=== PATIENT | female | born 1960 | race Asian ===

== ENCOUNTER 2016-06-30 12:05 | Day surgery (SDC) | payer OTHER ==
[~2016-06-30] VITALS: Ht 160 cm; Wt 64.0 kg
[2016-06-30 13:34] VITALS: Ht 160 cm; Wt 64.0 kg
[2016-06-30] MEDS ORDERED: PRIMROSE (13:40)
[2016-06-30] MEDS ORDERED: ATORVASTATIN (13:40)
[2016-06-30 15:06] VITALS: BP 125/77; PULSE 72; RESP 18
[2016-06-30] MEDS ORDERED: PROPOFOL 20 ML ONE (15:17)
[2016-06-30 16:40] VITALS: BP 145/86; PULSE 74; RESP 15
--- NOTE | 2016-06-30 18:18 | GILP ---
DATE OF PROCEDURE: 06/30/2016 PROCEDURE PERFORMED: Colonoscopy with biopsies and localization tattoo. PREMEDICATION: Monitored anesthesia care by anesthesiologist. SURGEON: Sharon Lopez MD. INSTRUMENT USED: Olympus colonoscope. PREPARATION: Was adequate. TECHNIQUE: After informed consent, with the patient/relatives understanding the procedure, its indic ations potential risks and complications, including but not limited to: allergic reaction, bleeding, perforation, infection, missed lesions and after all pertinent questions were answered to the patie nt's satisfaction, the patient/relatives signed the witnessed informed consent. Following this, premedication was administered slowly IV push by under careful cardiovascular and re spiratory monitoring with pulse oximetry, automatic blood pressure and requisition approver. Once the sedativ e effect was achieved, the patient was placed in the left lateral decubitus position, digital rectal examination was performed. The colonoscope was then introduced and advanced under visual control th roughout all segments of the colon including: the rectum, sigmoid, descending colon, splenic flexure , transverse colon, hepatic flexure, ascending colon and finally reaching the cecum which was clearl y identified by transillumination, finger indentation and the ileocecal valve. Careful examination o f the mucosa of the lower gastrointestinal tract both on insertion as well as withdrawal of the inst rument disclosed the following findings: Rectal Examination: No evidence of perirectal disease, no masses. Colonic Mucosa: There is a large, more than 5 cm broad-based polypoid mass which is multilobulated at approximately 30 cm in the distal sigmoid colon. The area was bypassed. The remainder of the co lonic mucosa unremarkable. The ileocecal valve was clearly identified and appears unremarkable. Th e instrument was withdrawn. On withdrawal of the instrument, no additional abnormalities are noted. The mass was biopsied extensively and it is soft to the touch. The area was tattooed for localiza tion. Moderate sized internal hemorrhoids are present. The instrument was then withdrawn, the patient tolerated the procedure well and was transferred out of the Endoscopy Suite awake and in good condition to continue recovery under observation. IMPRESSION: 1. Large, more than 5 cm broad-based polypoid mass in the distal sigmoid colon at about 30 cm from the anal verge biopsy tattoo. 2. Moderate sized internal hemorrhoids. PLAN: Pathology will be reviewed as soon as available. CT of the abdomen and pelvis should be obta ined. The lesion will require surgical resection. The patient has been informed of the findings and the need for surgery, as well as further imaging, i.e. CT. Dictated By: SHARON SANDOVAL Conf#: [id number] DID#: [id number]
== END 2016-06-30 16:36 | disposition home or self-care (01) ==
LOC: GIL 12:05
PROVIDERS: ATTEND Internal Medicine Gastroenterology
DX: Z12.11 Encounter for screening for malignant neoplasm of colon (principal); D12.5 Benign neoplasm of sigmoid colon; K64.8 Other hemorrhoids; E78.5 Hyperlipidemia, unspecified
CPT/HCPCS: 84703; 88305

== ENCOUNTER 2016-12-06 10:04 | Inpatient (IN) | payer OTHER ==
[~2016-12-06] VITALS: Ht 160 cm; Wt 60.6 kg
[2016-12-06] VITALS (19 sets, daily range): BP systolic 114–144; BP diastolic 67–89; PULSE 60–83; RESP 10–20; Ht 160 cm; Wt 60.6 kg
[~2016-12-06 10:04] MED LIST: ATORVASTATIN; PRIMROSE; metroNIDAZOLE 500 MG/100 ML NS IVPB ONE
[2016-12-06] MEDS ORDERED: ATOR10TA65 PO (10:34)
[2016-12-06] MEDS ORDERED: ROCURONIUM 50 MG INJ ONE (11:27)
[2016-12-06] MEDS ORDERED: PROPOFOL 20 ML ONE (11:27)
[2016-12-06] MEDS ORDERED: GLYCOPYRROLATE 0.4 MG INJ ONE (11:27)
[2016-12-06] MEDS ORDERED: MIDAZOLAM 1 MG/ML 2 ML INJ ONE (11:28)
[2016-12-06] MEDS ORDERED: ONDANSETRON 4 MG INJ ONE (11:28)
[2016-12-06] MEDS ORDERED: DEXAMETHASONE 4 MG/ML 1 ML INJ ONE (11:28)
[2016-12-06] MEDS ORDERED: FENTAnyl 50 MCG/ML VIAL ONE (11:28)
[2016-12-06] MEDS ORDERED: CEFAZOLIN 1 GM INJ ONE (11:28)
[2016-12-06] MEDS ORDERED: NEOSTIGMINE 3 MG/3 ML SYRINGE ONE (11:28)
[2016-12-06] MEDS ORDERED: LACTATED RINGER'S 1,000 ML IV* SCH (11:30)
[2016-12-06] MEDS ORDERED: CEFAZOLIN 2 GM/50 ML (PMX) 50 ML IVPB SCH (11:30)
--- NOTE | 2016-12-06 12:25 | HPN ---
Date/Time of Note Date/Time of Note DATE: 12/06/16 TIME: 12:24 Interval H&P Admission Note Pt. seen H&P reviewed: No system changes CARLOS PRABHAKAR MD Dec 06, 2016 12:25
[2016-12-06] MEDS ORDERED: [UNRECOGNIZED DRUG - OTHER] ONE (12:54)
[2016-12-06] MEDS ORDERED: ROPIVACAINE ONE (12:54)
[2016-12-06] MEDS ORDERED: OXYCODONE/ACETAMINOPHEN (5/325) TAB PO PRN ×2 (13:30)
[2016-12-06] MEDS ORDERED: FENTAnyl 50 MCG/ML VIAL IV PRN ×3 (13:30)
[2016-12-06] MEDS ORDERED: DIPHENHYDRAMINE 50 MG INJ IV PRN (13:30)
[2016-12-06] MEDS ORDERED: MEPERIDINE 25 MG INJ IV PRN (13:30)
[2016-12-06] MEDS ORDERED: hydrALAzine 20 MG INJ IV PRN (13:30)
[2016-12-06] MEDS ORDERED: TRIMETHOBENZAMIDE 100 MG/ML VIAL IM PRN (13:30)
[2016-12-06] MEDS ORDERED: IPRATROPIUM (NEB) 0.5 MG/2.5 ML AMP HHN PRN (13:30)
[2016-12-06] MEDS ORDERED: EPHEDrine SULFATE 50 MG/5 ML SYG IV PRN (13:30)
[2016-12-06] MEDS ORDERED: LABETALOL HCL 20MG INJ IV PRN (13:30)
[2016-12-06] MEDS ORDERED: MIDAZOLAM 1 MG/ML 2 ML INJ IV PRN (13:30)
[2016-12-06] MEDS ORDERED: HYDROmorphONE (0.2 MG/ML) 10ML SYG IV PRN ×3 (13:30)
[2016-12-06] MEDS ORDERED: ALBUTEROL 0.083% (NEB) 2.5 MG/3 ML AMP HHN PRN (13:30)
[2016-12-06] MEDS ORDERED: ONDANSETRON 4 MG INJ IV PRN ×2 (13:30→15:00)
[2016-12-06] MEDS ORDERED: SUGAMMADEX SODIUM 200 MG/2 ML VIAL IV ONE (14:38)
[2016-12-06] MEDS ORDERED: HYDROmorphONE 0.5 MG/0.5 ML SYG IV PRN (15:00)
--- NOTE | 2016-12-06 15:28 | SIPON ---
Date/Time of Note Date/Time of Note DATE: 12/06/16 TIME: 15:25 Operative Report Preoperative Diagnosis Sigmoid colon polyp Postoperative Diagnosis (same) Operation/Procedure Performed 1. Laparoscopic sigmoid colon resection 2. Rigid proctosigmoidoscopy Surgeon Carlos Nayak M.D. health information assistantcarlos Bustos M.D. Anesthesia: general Estimated blood loss: minimal Transfusion Required none Specimen Sigmoid colon Grafts/Implants none Complications none CARLOS NAYAK MD Dec 06, 2016 15:28
[2016-12-06] MEDS: KETOROLAC 30 MG INJ IV SCH ×2 (15:39→21:15)
[2016-12-06] MEDS: ACETAMINOPHEN 1000MG/100ML IV 100 ML IVPB SCH ×2 (15:39→22:50)
[2016-12-06 15:46] LABS: BASOPHIL # 0.1 10^3/ul (0.0-0.1); EOSINOPHILS # 0.1 10^3/ul (0.0-0.5); EOSINOPHILS % 0.8 % (0.0-7.0); HEMATOCRIT 37.6 % (37.0-47.0); HEMOGLOBIN 12.3 g/dl (12.0-16.0); LYMPHOCYTES % 37.1 % (15.0-51.0); MEAN CORPUSCULAR HEMOGLOBIN 29.1 pg (29.0-33.0); MEAN CORPUSCULAR HGB CONC 32.7 g/dl (32.0-37.0); MEAN CORPUSCULAR VOLUME 88.9 fl (82.0-101.0); MEAN PLATELET VOLUME 10.2 fl (7.4-10.4); MONOCYTE # 0.6 10^3/ul (0.3-0.9); MONOCYTES % 7.9 % (0.0-11.0); NEUTROPHIL # 4.2 10^3/ul (1.6-7.5); NEUTROPHILS % 52.2 % (39.0-77.0); PLATELET COUNT 275 10^3/UL (140-415); RED BLOOD COUNT 4.23 10^6/ul (4.20-5.40); RED CELL DISTRIBUTION WIDTH 14.5 % (11.5-14.5)
[2016-12-06 15:49] LABS: POSITIVE DIFF @See below
[2016-12-06 16:02] LABS: CREATININE 0.66 mg/dl (0.44-1.00); POTASSIUM 3.9 mmol/L (3.5-5.1)
[2016-12-06] MEDS: D5W-0.45 NACL + KCL 20 MEQ 1,000 ML IV SCH (16:03)
[2016-12-06] MEDS: CEFAZOLIN 1 GM/50 ML (PMX) 50 ML IVPB SCH (21:12)
--- NOTE | 2016-12-06 21:22 | OPR ---
DATE OF OPERATION: 12/06/2016 PREOPERATIVE DIAGNOSIS: Sigmoid colon polyp. POSTPROCEDURE DIAGNOSIS: Sigmoid colon polyp. OPERATIVE FINDINGS: Large sigmoid colon polyp. SURGEON: Dr. Carlos Nayak. POLITICAL ADVISOR: Minh Bustos. ANESTHESIA: General endotracheal anesthesia. PROCEDURES PERFORMED: 1. Laparoscopic sigmoid colon resection. 2. Rigid proctosigmoidoscopy. INDICATIONS FOR PROCEDURE: The patient underwent a colonoscopy on June 30 of this year for colorectal cancer screening. Was found to have an endoscopically unresectable sigmoid colon polyp at 30 cm from the anal verge. The various treatment options were discussed with her, and she elected to proceed with a laparoscopic sigmoid colon resection. Informed consent was obtained prior to the procedure. DESCRIPTION OF PROCEDURE: The patient was brought to the operating room and placed in supine position on the operating room table. Next, after successful administration of general endotracheal anesthesia, the patient was repositioned in the low lithotomy position using Barrington stirrups. Next, the patient's anterior abdomen as well as perineum and perianal skin were prepped and draped in the usual sterile fashion and a Montalvo urinary catheter was placed under sterile technique. Next, after surgical time-out and administration of perioperative antibiotics, a longitudinal incision was made just inferior to the patient's umbilicus using a skin scalpel. This 2 cm incision was extended downward to the linea alba. This was done using Bovie electrocautery. The linea alba was tented upward using two Darrick clamps and the abdomen was entered via this incision, taking care not to injure any intraabdominal organs using Bovie electrocautery. A Stacey trocar port was inserted in this infraumbilical port site and the balloon was inflated. It was secured in place using two #0 Vicryl sutures. Next, pneumoperitoneum established using carbon dioxide. The abdomen was examined through this infraumbilical port using a 10 mm 30 degree laparoscopic camera. Careful examination of the abdomen revealed no significant abnormalities. The patient then underwent placement of 2 additional trocar ports: One 12 mm port was placed in the right lower quadrant anterior abdominal wall via a 15 mm skin incision, and a 5 mm trocar port was placed in the right lateral anterior abdominal wall via a 7 mm skin incision. Both these trocars were inserted using a blunt technique under direct visualization. Once the ports were in place, the patient was then placed in Trendelenburg position with left side up. Then, using atraumatic bowel graspers, the sigmoid colon was carefully examined after the small bowel had been mobilized out the patient's pelvis. The patient was found to have a tattooing of the distal sigmoid colon, indicating the location of the endoscopically unresectable polyp. Next, while tenting up the sigmoid colon mesentery, the superior rectal artery and vein were identified in the mesentery. Careful use of electrocautery and the LigaSure tissue seal device allowed identification of the base of this vessel and by making a window underneath this in the mesentery, we were able to identify and preserve the left ureter. Once this was done, we isolated and divided both the superior rectal artery and vein, and then proceeded to divide the mesentery all the way up to a portion of colon 5 cm proximal to the tattooing of the bowel as well as down towards the rectosigmoid junction. After dividing the mesentery at the junction between the rectum and sigmoid colon indicated by the confluence of the tinea, we then passed a ZAYDA stapler via the right lower quadrant trocar port and divided the bowel between the sigmoid colon and the rectum. Once this was done, we carefully mobilized the remainder of the sigmoid colon by dividing its attachments to the left pelvic brim and along the left white line of Toldt to allow maximum laxity of the sigmoid colon. Next, we then moved the camera to the right lower quadrant trocar port and placed a grasper through the infraumbilical port and grasped the stapled edge of the sigmoid colon. Pneumoperitoneum was then discontinued and we widened the infraumbilical incision an additional 2 cm inferiorly and removed the Stacey trocar port and pulled the distal end of stapled bowel up through this incision after placing an Applied wound protector within. Next, we then placed an auto pursestring device across the bowel approximately 5 cm proximal to the palpable endoscopically unresectable sigmoid colon polyp and divided the bowel at this location, as the mesentery had been taken at this point already. We then passed off the sigmoid colon that had been resected and had it opened in the operating room by the pathologist. He identify the polyp as well as clear margins proximally and distally and radially to this lesion. Next, we secured the anvil from a 29 mm EEA stapler to the divided end of bowel using the aforementioned pursestring device. We then reduced this end of bowel with the anvil in place into the abdomen and then secured the Stacey trocar port within the applied wound retractor using the aid of a Solomon drain. We reestablished pneumoperitoneum without difficulty. Next, we placed the corresponding EEA stapler through the patient's anus into the rectum and proceeded to perform an end-to-end anastomosis between the rectum and the divided proximal bowel using the standard technique. Once this was done, we filled the pelvis with sterile water, used gentle pressure to occlude the proximal bowel, and performed a rigid proctosigmoidoscopy. This identified a healthy anastomosis with viable mucosa up to and including the staple line. Pressurization of the bowel at the staple line with gas using the proctoscope while submerging it in water did not reveal any bubbling from the anastomosis, indicating a secure anastomosis. The bowel then decompressed via the rigid proctoscope, and the proctoscope was removed. Careful examination of the anastomotic donuts from the stapler revealed complete and bulky donuts of tissue, both from the proximal and distal ends of bowel. Now, the anastomosis was complete, we suctioned the pelvis until dry and proceeded to remove the right lower quadrant and right lateral trocars under direct visualization. When no bleeding was noted, we discontinued pneumoperitoneum once again and removed the applied wound retractor as well as the accompanying Stacey trocar port. We then closed the fascial edges at the infraumbilical port using interrupted 0 Vicryl sutures in a [id number] fashions and closed the fascia at the right lower quadrant 12 mm trocar port, again using the 0 Vicryl suture using a UR-6 needle. Now that all the fascia was closed, we then irrigated each of the incisions with sterile water and then closed the skin edges using a subcuticular 4-0 Monocryl suture. Each of the skin edges were then covered with Dermabond skin adhesive and the procedure was complete. All needle, instrument and laparotomy pad counts were correct at the end of the surgery. Following the procedure, the patient was returned to the supine position. Anesthesia was discontinued and she was extubated in the operating room without complication. She was then transferred to recovery room in stable condition. By the completion of the procedure, the patient had received 2 liters of crystalloid. ESTIMATED BLOOD LOSS: Minimal. SPECIMENS: Sigmoid colon. Dictated By: CARLOS MILTON/SILVINO Conf#: [id number] [facility]#: [id number] MTDD
[2016-12-06] MEDS: metroNIDAZOLE 500 MG/NS (PMX) 100 ML IVPB SCH (21:51)
[2016-12-07] MEDS: ACETAMINOPHEN 1000MG/100ML IV 100 ML IVPB SCH ×4 (03:37→20:42)
[2016-12-07] MEDS: KETOROLAC 30 MG INJ IV SCH ×4 (03:40→20:42)
[2016-12-07] MEDS: D5W-0.45 NACL + KCL 20 MEQ 1,000 ML IV SCH ×2 (04:18→17:38)
[2016-12-07] MEDS: CEFAZOLIN 1 GM/50 ML (PMX) 50 ML IVPB SCH ×2 (04:57→13:03)
[2016-12-07 05:12] VITALS: BP 107/65; PULSE 63; RESP 20
[2016-12-07] MEDS: metroNIDAZOLE 500 MG/NS (PMX) 100 ML IVPB SCH ×2 (05:29→14:59)
[2016-12-07] MEDS ORDERED: PANTOPRAZOLE 40 MG INJ IV SCH (06:00)
[2016-12-07] MEDS: ENOXAPARIN 30 MG/0.3 ML SYG SC SCH (06:07)
[2016-12-07 06:38] LABS: BASOPHILS % 0.4 % (0.0-2.0); EOSINOPHILS # 0.2 10^3/ul (0.0-0.5); EOSINOPHILS % 1.8 % (0.0-7.0); HEMATOCRIT 31.2 % (37.0-47.0); HEMOGLOBIN 10.1 g/dl (12.0-16.0); LYMPHOCYTES # 1.7 10^3/ul (0.8-2.9); LYMPHOCYTES % 18.8 % (15.0-51.0); MEAN CORPUSCULAR HEMOGLOBIN 28.5 pg (29.0-33.0); MEAN CORPUSCULAR HGB CONC 32.4 g/dl (32.0-37.0); MEAN CORPUSCULAR VOLUME 88.1 fl (82.0-101.0); MEAN PLATELET VOLUME 9.5 fl (7.4-10.4); MONOCYTE # 0.8 10^3/ul (0.3-0.9); MONOCYTES % 8.4 % (0.0-11.0); NEUTROPHIL # 6.4 10^3/ul (1.6-7.5); NEUTROPHILS % 69.8 % (39.0-77.0); PLATELET COUNT 309 10^3/UL (140-415); RED BLOOD COUNT 3.54 10^6/ul (4.20-5.40); RED CELL DISTRIBUTION WIDTH 14.4 % (11.5-14.5); WHITE BLOOD COUNT 9.2 10^3/ul (4.8-10.8)
[2016-12-07 06:54] LABS: POSITIVE DIFF @See below
[2016-12-07 07:10] LABS: ALBUMIN 3.1 g/dl (3.3-4.9); ALBUMIN/GLOBULIN RATIO 0.96; BILIRUBIN,INDIRECT 0.3 mg/dl (0-1.1); BILIRUBIN,TOTAL 0.3 mg/dl (0.2-1.3); CALCIUM 8.5 mg/dl (8.4-10.2); CREATININE 0.69 mg/dl (0.44-1.00); POTASSIUM 3.8 mmol/L (3.5-5.1); TOTAL PROTEIN 6.3 g/dl (6.1-8.1)
[2016-12-07 07:32] VITALS: BP 118/70; RESP 16
--- NOTE | 2016-12-07 08:28 | PN ---
Date/Time of Note Date/Time of Note DATE: 12/07/16 TIME: 08:24 Assessment/Plan VTE Prophylaxis VTE Prophylaxis Intervention: ambulation, anti-embolic stocking, LMWH Lines/Catheters IV Catheter Type (from Nrs): Peripheral IV Montalvo in Place (from Nrs): No Assessment/Plan Chief Complaint/Hosp Course Ms. Snow is now POD#1 s/p laparoscopic sigmoid colon resection for an endoscopically unresectable colon polyp. She is doing well. She reports minimal pain and no nausea. Problems: Assessment/Plan 1. Advance diet 2. Encourage ambulation 3. Continue IV Tylenol/Toradol/Dilaudid for pain control 4. Likely discharge home in 1-2 days Subjective 24 Hr Interval Summary Ms. Ortiz denies pain or nausea. She reports that she is doing well. Her urinary catheter was removed this morning. She reports that she drank a little yesterday. Feeding: clear Pain Control: well controlled Exam/Review of Systems Vital Signs Vitals Vital Signs Date Time Temp Pulse Resp B/P Pulse Ox O2 Delivery O2 Flow Rate FiO2 12/07/16 07:32 97.9 67 16 118/70 94 12/07/16 05:12 Room Air 12/06/16 16:02 2.0 Intake and Output 12/06/16 12/06/16 12/07/16 15:00 23:00 07:00 Intake Total 2550 ml 350 ml Output Total 450 ml 1600 ml Balance 2100 ml -1250 ml Exam Constitutional: alert, oriented, well developed Gastrointestinal: bowel sounds (active), soft, surgical scars (incisions healing well), tender (mild tenderness to palpation with no guarding or rebound) Results Result Diagram: 12/07/16 0529 12/07/16 0529 CARLOS PRABHAKAR MD Dec 07, 2016 08:28
[2016-12-07 13:11] LABS: HEMATOCRIT 33.1 % (37.0-47.0); HEMOGLOBIN 10.7 g/dl (12.0-16.0); MEAN CORPUSCULAR HGB CONC 32.3 g/dl (32.0-37.0); MEAN CORPUSCULAR VOLUME 89.7 fl (82.0-101.0); MEAN PLATELET VOLUME 9.5 fl (7.4-10.4); PLATELET COUNT 332 10^3/UL (140-415); RED BLOOD COUNT 3.69 10^6/ul (4.20-5.40); RED CELL DISTRIBUTION WIDTH 14.3 % (11.5-14.5); WHITE BLOOD COUNT 9.5 10^3/ul (4.8-10.8)
[2016-12-07 13:18] LABS: POSITIVE DIFF @See below
[2016-12-07 13:53] LABS: BURR CELLS 1+ (0-0); MONOCYTES % (M) 3 % (0-11); OVALOCYTES 1+ (0-0); PLATELET ESTIMATE NORMAL; POIKILOCYTOSIS 1+ (0-0); POLYCHROMASIA 1+ (0-0)
[2016-12-07 14:00] VITALS: BP 114/69; RESP 16
[2016-12-07 19:21] VITALS: BP 121/67; RESP 20
[2016-12-07] MEDS ORDERED: FAMOTIDINE 20 MG INJ IV SCH (21:00)
[2016-12-08 01:45] VITALS: BP 138/81; RESP 20
[2016-12-08] MEDS: ACETAMINOPHEN 1000MG/100ML IV 100 ML IVPB SCH ×2 (02:39→09:40)
[2016-12-08] MEDS: KETOROLAC 30 MG INJ IV SCH ×2 (02:39→12:01)
[2016-12-08] MEDS: D5W-0.45 NACL + KCL 20 MEQ 1,000 ML IV SCH (06:21)
[2016-12-08] MEDS: ENOXAPARIN 30 MG/0.3 ML SYG SC SCH (06:21)
[2016-12-08 06:40] LABS: BASOPHILS % 0.3 % (0.0-2.0); EOSINOPHILS # 0.3 10^3/ul (0.0-0.5); EOSINOPHILS % 2.9 % (0.0-7.0); HEMATOCRIT 32.7 % (37.0-47.0); HEMOGLOBIN 10.5 g/dl (12.0-16.0); LYMPHOCYTES # 1.8 10^3/ul (0.8-2.9); LYMPHOCYTES % 19.6 % (15.0-51.0); MEAN CORPUSCULAR HEMOGLOBIN 28.2 pg (29.0-33.0); MEAN CORPUSCULAR HGB CONC 32.1 g/dl (32.0-37.0); MEAN CORPUSCULAR VOLUME 87.7 fl (82.0-101.0); MEAN PLATELET VOLUME 9.6 fl (7.4-10.4); MONOCYTE # 0.7 10^3/ul (0.3-0.9); MONOCYTES % 7.7 % (0.0-11.0); NEUTROPHIL # 6.3 10^3/ul (1.6-7.5); NEUTROPHILS % 68.8 % (39.0-77.0); PLATELET COUNT 352 10^3/UL (140-415); RED BLOOD COUNT 3.73 10^6/ul (4.20-5.40); RED CELL DISTRIBUTION WIDTH 14.4 % (11.5-14.5); WHITE BLOOD COUNT 9.1 10^3/ul (4.8-10.8)
[2016-12-08 07:20] LABS: CALCIUM 8.5 mg/dl (8.4-10.2); CREATININE 0.63 mg/dl (0.44-1.00); POTASSIUM 3.5 mmol/L (3.5-5.1)
[2016-12-08 07:35] VITALS: BP 133/79; RESP 16
[2016-12-08] MEDS ORDERED: PANTOPRAZOLE (EC) 40 MG TAB PO SCH (09:00)
--- NOTE | 2016-12-08 12:40 | PN ---
Date/Time of Note Date/Time of Note DATE: 12/08/16 TIME: 12:37 Assessment/Plan VTE Prophylaxis VTE Prophylaxis Intervention: ambulation, LMWH, SCD's Lines/Catheters IV Catheter Type (from Nrs): Saline Lock Montalvo in Place (from Nrs): No Assessment/Plan Chief Complaint/Hosp Course Ms. Snow is now POD#2 s/p laparoscopic sigmoid colon resection for an endoscopically unresectable colon polyp. She is doing well. She reports minimal pain and no nausea. She is tolerating a diet and ambulating well. Problems: Assessment/Plan 1. Discharge home today 2. Follow up with Dr. Nayak in his office in one week. Subjective 24 Hr Interval Summary Ms. Snow reports that she continues to improve. She has minimal incisional pain and only occasional gas pains. She has been ambulating and passing gas. She denies any nausea and is tolerating a diet. Feeding: advancing diet Pain Control: well controlled Exam/Review of Systems Vital Signs Vitals Vital Signs Date Time Temp Pulse Resp B/P Pulse Ox O2 Delivery O2 Flow Rate FiO2 12/08/16 07:35 97.9 62 16 133/79 96 12/07/16 05:12 Room Air 12/06/16 16:02 2.0 Intake and Output 12/07/16 12/07/16 12/08/16 14:59 22:59 06:59 Intake Total 450 ml 1680 ml 360 ml Output Total 500 ml Balance 450 ml 1180 ml 360 ml Exam Constitutional: alert, oriented, well developed Gastrointestinal: bowel sounds (positive BS), soft, surgical scars (incisions are healing well, no s/s of infection), tender (mild inicisional TTP) Results Result Diagram: 12/08/16 0530 12/08/16 0530 CARLOS NAYAK MD Dec 08, 2016 12:40
--- NOTE | 2016-12-08 12:42 | PDOCDIS ---
Discharge Instructions DIAGNOSIS Discharge Diagnosis Sigmoid colon polyp. CONDITION Patient Condition: Good HOME CARE INSTRUCTIONS: Diet Instructions: RegularSpecial Diet: low residue ACTIVITY: Activity Restrictions: Slowly Increase Activity Avoid heavy lifting Bathing Restrictions: Shower FOLLOW UP/APPOINTMENTS Follow-up Plan Follow up with Dr. Nayak in 1 week. CARLOS NAYAK MD Dec 08, 2016 12:42
[2016-12-08] MEDS ORDERED: HYDR-906 PO (12:43)
[2016-12-08 14:00] VITALS: BP 130/72; PULSE 72; RESP 16
[2016-12-08 14:41] VITALS: BP 127/78; RESP 16
== END 2016-12-08 15:25 | disposition home or self-care (01) | DRG 331 ==
LOC: REC 10:04 → MS2 16:25
PROVIDERS: ADMIT Colon & Rectal Surgery; ATTEND Colon & Rectal Surgery
PROC: 0DJD8ZZ Inspection of Lower Intestinal Tract, Via Natural or Artificial Opening Endoscopic (ICD-10-PCS; 2016-12-06)
PROC: 0DBN0ZZ Excision of Sigmoid Colon, Open Approach (ICD-10-PCS; principal; 2016-12-06 12:00)
DX: K63.5 Polyp of colon (principal)
CPT/HCPCS: 80048; 80053; 84703; 85025; 86850; 86900; 86901; 87086; 88307; C9113; J0131; J0690; J1100; J1650; J1885; J2250; J2405; J2710; J2795; J3010; J3480